=== PATIENT | male | born 1975 | race African-American/Black ===

== ENCOUNTER 2017-03-22 10:29 | Emergency (ER) | payer OTHER ==
[2017-03-22] MEDS ORDERED: IBUPROFEN 800 MG TABLET PO ONE (11:40)
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
[2017-03-22 12:42] VITALS: BP 140/90
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
== END 2017-03-22 12:45 | disposition home or self-care (01) ==
LOC: ER 10:29
DX: T14.8XXA Other injury of unspecified body region, initial encounter (principal); M25.552 Pain in left hip; M25.512 Pain in left shoulder; M79.652 Pain in left thigh; M79.642 Pain in left hand; M79.89 Other specified soft tissue disorders; V43.52XA Car driver injured in collision with other type car in traffic accident, initial encounter; Z87.891 Personal history of nicotine dependence
CPT/HCPCS: 99284

== ENCOUNTER 2017-03-31 08:56 | Emergency (ER) | payer OTHER ==
[2017-03-31 09:03] VITALS: BP 132/93
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
== END 2017-03-31 09:55 | disposition home or self-care (01) ==
LOC: ER 08:56
DX: M79.632 Pain in left forearm (principal); M79.631 Pain in right forearm; M25.522 Pain in left elbow; M25.521 Pain in right elbow; V49.9XXA Car occupant (driver) (passenger) injured in unspecified traffic accident, initial encounter
CPT/HCPCS: 99283

== ENCOUNTER 2019-09-14 10:51 | Emergency (ER) | payer OTHER ==
[2019-09-14] MEDS ORDERED: DEXAMETHASONE 4 MG TABLET PO ONE (12:16)
[2019-09-14] MEDS ORDERED: ACETAMINOPHEN 325 MG TABLET PO ONE (12:16)
--- NOTE | 2019-09-14 12:17 | ER Document Report ---
HPI - HPI Time Seen by Provider: 09/14/19 11:55 Pain Level: 3 Context: Presents complaint of sore throat for the past 3 days. Patient reports referred pain to the right ear. Patient denies any fever. Patient states has had mild headache. Patient denies any cough. Patient states he did have a leftover antibiotic that he took this morning. Associated Symptoms: Earache, Sore throat - CONSTITUTIONAL Constitutional: DENIES: Fever - EENT EENT: REPORTS: Sore Throat, Ear Pain - RESPIRATORY Respiratory: DENIES: Coughing - GASTROINTESTINAL Gastrointestinal: DENIES: Nausea, Patient vomiting - DERM Skin Color: Normal Skin Problems: None Past Medical History - General Information source: Patient - Social History Smoking Status: Never Smoker Frequency of alcohol use: Occasional Drug Abuse: Marijuana Occupation: [employer] Lives with: Family Family History: DM, Hypertension. denies: Arthritis, CAD, COPD, CVA, Hyperlipidemia, Malignancy, Thyroid Disfunction - Medical History Medical History: Negative Renal/ Medical History: Denies: Hx Peritoneal Dialysis Surgical Hx: Negative - Immunizations Hx Diphtheria, Pertussis, Tetanus Vaccination: No Vertical Provider Document - CONSTITUTIONAL Agree With Documented VS: Yes Exam Limitations: No Limitations General Appearance: WD/WN, No Apparent Distress - INFECTION CONTROL TRAVEL OUTSIDE OF THE [place] IN LAST 30 DAYS: No - HEENT HEENT: Atraumatic, Normocephalic, Pharyngeal Exudate, Pharyngeal Tenderness, Pharyngeal Erythema - NECK Neck: Normal Inspection, Supple. negative: Lymphadenopathy-Left, Lymphadenopathy-Right - RESPIRATORY Respiratory: Breath Sounds Normal, No Respiratory Distress - CARDIOVASCULAR Cardiovascular: Regular Rate, Regular Rhythm - BACK Back: Normal Inspection - MUSCULOSKELETAL/EXTREMETIES Musculoskeletal/Extremeties: MAEW - NEURO Level of Consciousness: Awake, Alert, Appropriate Motor/Sensory: No Motor Deficit, No Sensory Deficit - DERM Integumentary: Warm, Dry, No Rash Course - Re-evaluation Re-evalutation: 09/14/19 14:07 Patient's rapid strep test and mono test negative at this time, throat culture is pending. Patient was given a dose of steroid as well as a prescription for naproxen to help manage his pain symptoms. Good return precautions discussed with patient. Patient verbalized understanding and is agreeable with discharge plan of care. - Vital Signs Vital signs: Temp Pulse Resp BP Pulse Ox 98.3 F 80 20 147/90 H 98 09/14/19 11:07 09/14/19 11:07 09/14/19 11:07 09/14/19 11:07 09/14/19 11:07 - Laboratory Laboratory results interpreted by me: 09/14/19 13:55 Labs- All tests 24 hr 09/14/19 09/14/19 12:45 12:45 Monotest NEGATIVE Group A Strep Rapid NEGATIVE Discharge - Discharge Clinical Impression: Sore throat Condition: Stable Disposition: HOME, SELF-CARE Instructions: Sore Throat ([facility]) Additional Instructions: Throat culture is pending, we will call if you need any different treatment Return immediately for any new or worsening symptoms Followup with your primary care provider, call tomorrow to make a followup appointment Prescriptions: Naproxen [Naprosyn 250 Nmg Tablet] 1 tab PO BID #14 tablet Forms: Return to Work Referrals: [facility] [Provider Group] - Follow up as needed
[2019-09-14 14:35] VITALS: BP 145/85
== END 2019-09-14 14:39 | disposition home or self-care (01) ==
LOC: ER 10:51
DX: J02.9 Acute pharyngitis, unspecified (principal); H92.01 Otalgia, right ear; R51 Headache; F12.10 Cannabis abuse, uncomplicated
CPT/HCPCS: 99283; 36415; 87070; 87880; 87077; 86308; J8540